=== PATIENT | female | born 1995 | race Caucasian/White ===

== ENCOUNTER → 2018-02-02 | Day surgery (SDC) | payer OTHER ==
[~2018-02-02] MED LIST: BACITRACIN 50,000 UNIT VIAL ONE; BUPIVACAINE HCL 0.5% INJ 30 ML VIAL INJ ONE; CEFAZOLIN SOD 2 GM/D5W 50ML 50 ML IV ONE; CITALOPRAM HBR20 MG PO; DEXAMETHASONE SOD PHOS INJ 4 MG/ML VIAL ONE; FENTANYL CITRATE/PF 100MCG/2 ML INJ ONE; LIDOCAINE HCL 2% LOCAL INJ 5 ML SDV VIAL INJ ONE; MIDAZOLAM HCL 2 MG/2 ML VIAL ONE; ONDANSETRON HCL INJ 2 MG/ML VIAL ONE; PROPOFOL IV EMULSION 10 MG/ML 20 ML VIAL ONE; SEVOFLURANE INHAL SOLN 250 ML PEN BTL ONE
[2018-02-02 15:30] VITALS: BP 108/75
--- NOTE | 2018-02-18 11:00 | Operative Report ---
DATE OF PROCEDURE: February 02, 2018 PREOPERATIVE DIAGNOSES 1. Displaced left great toe proximal phalanx fracture. 2. Displaced left small toe proximal phalanx fracture. POSTOPERATIVE DIAGNOSES 1. Displaced left great toe proximal phalanx fracture. 2. Displaced left small toe proximal phalanx fracture. PROCEDURES PERFORMED 1. Closed reduction and percutaneous pinning of the left great toe proximal phalanx fracture. 2. Closed reduction and percutaneous pinning of the left small toe proximal phalanx fracture. [employer] REMOVAL: None. ANESTHESIA: General endotracheal intubation anesthesia. IV FLUIDS: Per the anesthesia record. DESCRIPTION OF PROCEDURE: Ms. Suazo was taken to the operating room and placed in the supine position on the operating table. Following induction of general anesthesia as well as endotracheal intubation, the patient's left lower extremity was examined under anesthesia. She was found to have a swollen forefoot. She had bruising and ecchymosis overlying the great toe and small toe of her left foot. Fluoroscopic evaluation of the great toe demonstrated a comminuted and angulated fracture of the proximal phalanx of the great toe. There was also a fracture of the base of the left small toe. The patient's lower extremity was prepped draped in standard surgical fashion. Case was begun by attempting a closed reduction of the patient's left great toe. The great toe's alignment was improved, and two 0.062 K-wires were inserted from distal to proximal, transfixing the proximal phalanx of the great toe in its reduced position. The position of those pins as well as reduction of the fracture site was assessed using fluoroscopy and found to be appropriate. Similarly, the patient's small toe was then held in reduced position. A single pin was inserted from lateral to medial transfixing the patient's fracture site in a reduced position. Fluoroscopic evaluation of the foot at that time demonstrated acceptable realignment of her injuries. The patient's pin sites were dressed sterilely. She was placed in a well-padded splint covering the posterior leg and forefoot to protect the pins. She was then awakened and taken to postanesthesia care unit in stable condition. Job#: [id number]
== END | disposition home or self-care (01) ==
LOC: OR 10:46
PROVIDERS: ATTEND Specialist
DX: S92.412A Displaced fracture of proximal phalanx of left great toe, initial encounter for closed fracture (principal); S92.512A Displaced fracture of proximal phalanx of left lesser toe(s), initial encounter for closed fracture; F32.9 Major depressive disorder, single episode, unspecified; F41.9 Anxiety disorder, unspecified; W10.8XXA Fall (on) (from) other stairs and steps, initial encounter; Z88.6 Allergy status to analgesic agent
CPT/HCPCS: 28496; 28515; 76000; 81025; J1100; J2001; J2250; J2405